=== PATIENT | female | born 2000 | race Caucasian/White ===

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

== ENCOUNTER 2024-06-22 10:34 | Emergency (ER) | payer MEDICAID, SELFPAY ==
[2024-06-22] MEDS ORDERED: Docusate Sodium 100 MG/10 ML UDCUP FS SCH (11:30)
== END 2024-06-22 12:38 | disposition home or self-care (01) ==
LOC: ERS 10:34
DX: T16.2XXA Foreign body in left ear, initial encounter (principal); W44.F4XA Insect entering into or through a natural orifice, initial encounter
CPT/HCPCS: 69200; 99282